=== PATIENT | male | born 1945 | race Caucasian/White ===

== ENCOUNTER → 2018-11-03 | Outpatient (CLI) | payer MEDICARE, OTHER ==
[~2018-11-03] MED LIST: ALBU8.5H8 INH; ASPI-496 PO; CALC1CAP8 PO; IPRA15SP NS; LEVO112T2 PO; LISI1TAB3 PO; MULT-717 PO; SIMV20TA3 PO; TIOT18CA INH
[2018-11-03 12:05] LABS: MICROSCOPIC NOT IND
[2018-11-03 12:07] LABS: BASOPHILS % (AUTO) 2 % (0-1); EOSINOPHILS # (AUTO) 0.14 x10^3/uL (0-0.4); EOSINOPHILS % (AUTO) 2 % (1-7); LYMPHOCYTES # (AUTO) 1.58 x10^3/uL (1-3.4); LYMPHOCYTES % (AUTO) 27 % (22-44); MD NO; MEAN CORPUSCULAR HEMOGLOBIN 30.9 pg (27.5-34.5); MEAN CORPUSCULAR HGB CONC 33.3 g/dL (33.2-36.2); MEAN PLATELET VOLUME 9.3 fL (7.4-10.4); MONOCYTES # (AUTO) 0.68 x10^3/uL (0.2-0.8); MONOCYTES % (AUTO) 12 % (2-9); NEUTROPHILS # (AUTO) 3.27 x10^3/uL (1.8-6.8); NEUTROPHILS % (AUTO) 57 % (42-75); PLATELET COUNT 169 x10^3/uL (130-400); RED BLOOD COUNT 5.07 x10^6/uL (4.38-5.82); RED CELL DISTRIBUTION WIDTH 13.1 % (9.4-14.8)
[2018-11-03 12:12] LABS: INTERNATIONAL NORMALIZED RATIO 1.01 (0.93-1.1); PROTHROMBIN TIME 10.6 Seconds (9.6-11.5)
[2018-11-03 12:15] LABS: ALANINE AMINOTRANSFERASE 41 U/L (12-78); ANION GAP 6 mmol/L (5-15); CALCIUM 9.3 mg/dL (8.5-10.1); CHLORIDE 107 mmol/L (98-107); CREATININE 1.03 mg/dL (0.7-1.3)
[2018-11-03 12:17] LABS: ALKALINE PHOSPHATASE 77 U/L (45-117); TOTAL PROTEIN 7.1 g/dL (6.4-8.2)
== END | disposition home or self-care (01) ==
LOC: STAR 10:47 → MERGE 11:30
PROVIDERS: ATTEND Thoracic Surgery (Cardiothoracic Vascular Surgery)
DX: Z01.818 Encounter for other preprocedural examination (principal); D49.511 Neoplasm of unspecified behavior of right kidney
CPT/HCPCS: 36415; 80053; 81003; 85025; 85610; 85730; 87086; 93005

== ENCOUNTER 2018-11-18 09:41 | Inpatient (IN) | payer MEDICARE, OTHER ==
[~2018-11-18] VITALS: Ht 175.3 cm; Wt 71.1 kg
[2018-11-18] MEDS ORDERED: LACTATED RINGERS 1,000 ML IV SCH (10:13)
[2018-11-18] MEDS ORDERED: MIDAZOLAM 1 MG/ML, 2ML ONE (10:46)
[2018-11-18] MEDS ORDERED: FENTANYL PF 250 MCG/5ML ONE (10:47)
[2018-11-18 10:51] VITALS: BP 138/87
[2018-11-18] MEDS ORDERED: INDIGO CARMINE 0.8%, 5ML ONE (11:56)
[2018-11-18] MEDS ORDERED: FUROSEMIDE 20 MG/2 ML ONE (11:56)
[2018-11-18] MEDS ORDERED: BUPIVACAINE/PF 0.25% ONE (11:56)
[2018-11-18] MEDS ORDERED: THROMBIN 20,000 UNIT VIAL TP ONE (11:57)
[2018-11-18] MEDS ORDERED: EPINEPHRINE 1 MG/ML, 1ML ONE (11:57)
[2018-11-18] MEDS ORDERED: ROCURONIUM 10 MG/ML,10ML ONE (12:07)
[2018-11-18] MEDS ORDERED: CEFAZOLIN 1,000 MG ONE (12:07)
[2018-11-18] MEDS ORDERED: ONDANSETRON 2MG/ML, 2ML ONE ×3 (12:07→17:30)
[2018-11-18] MEDS ORDERED: SUCCINYLCHOLINE 20 MG/ML, 10ML ONE (12:07)
[2018-11-18] MEDS ORDERED: PROPOFOL 10 MG/ML, 20ML ONE (12:07)
[2018-11-18] MEDS ORDERED: NEOSTIGMINE 1 MG/ML, 10ML ONE (12:07)
[2018-11-18] MEDS ORDERED: GLYCOPYRROLATE 0.2MG/1ML, 5ML ONE (12:07)
[2018-11-18] MEDS ORDERED: DEXAMETHASONE 4 MG/ML, 1ML ONE (12:07)
[2018-11-18] MEDS ORDERED: MORPHINE SULFATE 4 MG/ML, 1ML IVPush PRN (13:00)
[2018-11-18] MEDS ORDERED: OXYcodone 5 MG/5 ML ORAL.SOL UDC PO PRN (13:00)
[2018-11-18] MEDS ORDERED: LABETALOL 5MG/ML, 20ML IV PRN (13:00)
[2018-11-18] MEDS ORDERED: PROMETHAZINE 25 MG/ML, 1ML IV PRN (13:00)
[2018-11-18] MEDS ORDERED: LORazepam 2 MG/ML, 1ML IVPush PRN (13:00)
[2018-11-18] MEDS ORDERED: MEPERIDINE/PF 25MG/0.5ML IVPush PRN (13:00)
[2018-11-18] MEDS ORDERED: hydrALAzine 20 MG/ML, 1ML IV PRN (13:00)
[2018-11-18] MEDS ORDERED: BUPIVACAINE/PF 0.25% INFIL ONE (13:29)
[2018-11-18] MEDS: FENTANYL PF 100 MCG/2ML IV PRN ×3 (15:11→15:21)
[2018-11-18] MEDS ORDERED: FENTANYL PF 100 MCG/2ML ONE (15:13)
[2018-11-18] MEDS ORDERED: OXYcodone 5 MG/5 ML ORAL.SOL UDC ONE (15:13)
[2018-11-18] MEDS: HYDROmorphone 2 MG/ML, 1ML IVPush PRN ×6 (15:40→16:20)
[2018-11-18] MEDS ORDERED: morphine SULFATE 10 MG/ML, 1ML IVPush PRN (18:30)
[2018-11-18] MEDS ORDERED: ONDANSETRON 2MG/ML, 2ML IV PRN (18:30)
[2018-11-18] MEDS ORDERED: TEMAZEPAM 15 MG CAPSULE PO PRN (18:30)
[2018-11-18] MEDS ORDERED: ALBUTEROL HFA 90 MCG/SPRAY INH PRN (19:00)
[2018-11-18] MEDS ORDERED: [UNRECOGNIZED DRUG - REMARK] MC SCH (19:00)
[2018-11-18 20:00] VITALS: BP 122/79
[2018-11-18] MEDS: CEFAZOLIN PMX 1GM/50ML 50 ML IVPB SCH (20:08)
[2018-11-18] MEDS: D5%-0.45NACL+KCL 20MEQ 1,000 ML IV SCH (20:08)
[2018-11-18] MEDS ORDERED: HYDROCHLOROTHIAZIDE 12.5 MG CAPSULE PO SCH (21:00)
[2018-11-18] MEDS ORDERED: SIMVASTATIN 20 MG TABLET PO SCH (21:00)
[2018-11-18] MEDS: IPRATROPIUM NASAL 0.03%, 30ML NAS SCH (21:00)
[2018-11-18] MEDS ORDERED: LISINOPRIL 10 MG TABLET PO SCH (21:00)
[2018-11-18] MEDS: IPRATROPIUM 0.5 MG/2.5 ML INHA NPPB SCH (21:35)
[2018-11-19 00:06] VITALS: BP 115/77
[2018-11-19] MEDS: IPRATROPIUM 0.5 MG/2.5 ML INHA NPPB SCH ×3 (03:00→13:00)
[2018-11-19 04:21] VITALS: BP 94/59
[2018-11-19] MEDS: D5%-0.45NACL+KCL 20MEQ 1,000 ML IV SCH ×2 (04:43→13:11)
[2018-11-19] MEDS: CEFAZOLIN PMX 1GM/50ML 50 ML IVPB SCH (04:43)
[2018-11-19] MEDS: HYDROcodone/APAP 5/325 TABLET PO PRN ×2 (05:51→10:28)
[2018-11-19 06:16] LABS: ANION GAP 7 mmol/L (5-15); CALCIUM 7.9 mg/dL (8.5-10.1); CHLORIDE 106 mmol/L (98-107)
[2018-11-19] MEDS ORDERED: ENOXAPARIN 40 MG/0.4 ML SQ SCH (08:00)
[2018-11-19] MEDS: IPRATROPIUM NASAL 0.03%, 30ML NAS SCH ×2 (08:48→15:07)
[2018-11-19] MEDS ORDERED: LEVOTHYROXINE 112 MCG TABLET PO SCH (09:00)
[2018-11-19] MEDS ORDERED: LISINOPRIL 10 MG TABLET PO SCH (09:00)
[2018-11-19] MEDS ORDERED: HYDROCHLOROTHIAZIDE 12.5 MG CAPSULE PO SCH (09:00)
[2018-11-19 09:03] VITALS: BP 94/59
[2018-11-19 12:35] VITALS: BP 99/58
[2018-11-19] MEDS ORDERED: HYDR-3240 PO (15:18)
[2018-11-19] MEDS ORDERED: DOCU-131 PO (15:19)
[2018-11-19 16:26] VITALS: BP 114/80
[2018-11-21] MEDS ORDERED: LEVOTHYROXINE 112 MCG TABLET PO SCH (09:00)
[2018-11-22] MEDS ORDERED: LEVOTHYROXINE 112 MCG TABLET PO SCH (09:00)
== END 2018-11-19 17:00 | disposition home or self-care (01) | DRG 419 ==
LOC: OUT 09:41 → MERGE 11:30 → 4NOR 17:10 → OUT 17:18 → DCLOUNGE 11-19 16:38
PROVIDERS: ADMIT Thoracic Surgery (Cardiothoracic Vascular Surgery); ATTEND Thoracic Surgery (Cardiothoracic Vascular Surgery)
PROC: 0TB04ZZ Excision of Right Kidney, Percutaneous Endoscopic Approach (ICD-10-PCS; 2018-11-18)
PROC: 8E0W4CZ Robotic Assisted Procedure of Trunk Region, Percutaneous Endoscopic Approach (ICD-10-PCS; 2018-11-18)
PROC: 03HY32Z Insertion of Monitoring Device into Upper Artery, Percutaneous Approach (ICD-10-PCS; 2018-11-18)
PROC: 0FT44ZZ Resection of Gallbladder, Percutaneous Endoscopic Approach (ICD-10-PCS; principal; 2018-11-18 12:00)
PROC: 8E0W4CZ Robotic Assisted Procedure of Trunk Region, Percutaneous Endoscopic Approach (ICD-10-PCS; 2018-11-18 12:00)
DX: K80.10 Calculus of gallbladder with chronic cholecystitis without obstruction (principal); N28.89 Other specified disorders of kidney and ureter; K66.0 Peritoneal adhesions (postprocedural) (postinfection); G47.33 Obstructive sleep apnea (adult) (pediatric); J44.9 Chronic obstructive pulmonary disease, unspecified; I10 Essential (primary) hypertension; E78.5 Hyperlipidemia, unspecified; E03.9 Hypothyroidism, unspecified; Z88.0 Allergy status to penicillin; Z88.1 Allergy status to other antibiotic agents; Z88.8 Allergy status to other drugs, medicaments and biological substances
CPT/HCPCS: 36415; 80048; 82570; 85014; 85018; 86850; 86900; 88304; 88307; 94640; G0378; J0171; J0690; J1100; J1170; J1650; J2250; J2405; J2704; J2710; J3010; J3490; J7644; C1760; J0330; J1940; J3480; J7120